=== PATIENT | female | born 2000 | race African-American/Black ===

== ENCOUNTER 2018-07-12 10:44 | Emergency (ER) | payer MEDICAID ==
[~2018-07-12] VITALS: Ht 167.6 cm; Wt 60.0 kg
[2018-07-12] MEDS ORDERED: DICYCLOMINE HCL 10MG CAPSULE PO ONE (16:00)
[2018-07-12] MEDS ORDERED: ONDANSETRON 4MG ODT PO ONE (16:00)
[2018-07-12 17:34] LABS: CLARITY URINE CLEAR (CLEAR); COLOR URINE YELLOW (YELLOW); KETONES URINE NEGATIVE (NEGATIVE); LEUKOCYTE ESTERASE URINE NEGATIVE (NEGATIVE); NITRITE URINE NEGATIVE (NEGATIVE); OCCULT BLOOD URINE TRACE (NEGATIVE); PH URINE 5.5 (4.5-8.0); PROTEIN URINE NEGATIVE (NEGATIVE); SPECIFIC GRAVITY URINE 1.023 (1.005-1.030); UROBILINOGEN URINE 0.2 E.U./dL (0.2-1.0)
[2018-07-12 17:45] VITALS: BP 124/84
== END 2018-07-12 18:10 | disposition home or self-care (01) ==
LOC: ER 12:40
DX: A08.4 Viral intestinal infection, unspecified (principal); F12.10 Cannabis abuse, uncomplicated; Z98.890 Other specified postprocedural states
CPT/HCPCS: 81003; 81025; 99283; Q0162